=== PATIENT | female | born 1955 ===

== ENCOUNTER 2022-11-18 06:52 | Day surgery (SDC) | payer OTHER ==
[~2022-11-18] VITALS: Ht 162.6 cm; Wt 49.0 kg
[2022-11-18] MEDS ORDERED: COLACE100 MG PO (14:06)
[2022-11-18] MEDS ORDERED: TRAM1TAB98 PO (14:06)
== END 2022-11-18 19:00 | disposition home or self-care (01) ==
LOC: CIR.AMB 06:52
PROVIDERS: ATTEND Surgery
DX: D01.3 Carcinoma in situ of anus and anal canal (principal); A63.0 Anogenital (venereal) warts; K62.89 Other specified diseases of anus and rectum; Z20.822 Contact with and (suspected) exposure to COVID-19; I10 Essential (primary) hypertension; K64.9 Unspecified hemorrhoids